=== PATIENT | female | born 1945 | race Caucasian/White ===

== ENCOUNTER 2017-08-19 01:43 | Emergency (ER) | payer MEDICARE, OTHER ==
[2017-08-19] MEDS ORDERED: ALBUTEROL NEB 2.5 MG/3 ML INH STA (01:53)
[2017-08-19 02:11] LABS: BASOPHILS # (AUTO) 0.1 10^3/uL (0.0-0.1); BASOPHILS % (AUTO) 0.5 %; EOSINOPHILS % (AUTO) 0.2 %; HGB - HEMOGLOBIN 12.9 g/dL (12.0-16.0); LYMPHOCYTES # (AUTO) 2.1 10^3/uL (1.5-3.5); LYMPHOCYTES % (AUTO) 13.6 %; MEAN CORPUSCULAR HEMOGLOBIN 27.6 pg (27.0-31.0); MEAN CORPUSCULAR HGB CONC 32.3 g/dL (32.0-36.0); MEAN CORPUSCULAR VOLUME 85.4 fL (81.0-99.0); MEAN PLATELET VOLUME 8.1 fL (7.9-10.8); MONOCYTES # (AUTO) 0.9 10^3/uL (0.0-1.0); MONOCYTES % (AUTO) 5.8 %; NEUTROPHILS # (AUTO) 12.6 10^3/uL (1.5-6.6); NEUTROPHILS % (AUTO) 79.9 %; PLT - PLATELET COUNT 258 10^3/uL (130-450); RED BLOOD COUNT 4.66 10^6/uL (4.20-5.40); RED CELL DISTRIBUTION WIDTH 13.1 % (12.0-15.0); WHITE BLOOD COUNT 15.8 x10^3/uL (4.8-10.8)
[2017-08-19 02:27] LABS: ALBUMIN 4.2 g/dL (3.2-5.5); ALBUMIN/GLOBULIN RATIO 1.4 (1.0-2.2); BILIRUBIN,TOTAL 0.7 mg/dL (0.2-1.0); CALCIUM 9.5 mg/dL (8.5-10.3); CREATININE 0.7 mg/dL (0.4-1.0); TOTAL PROTEIN 7.2 g/dL (6.7-8.2)
--- NOTE | 2017-08-19 03:25 | XRAY Report ---
EXAM: CHEST RADIOGRAPHY EXAM DATE: 08/19/2017 03:03 AM. CLINICAL HISTORY: Epigastric pain. COMPARISON: 07/21/2013. TECHNIQUE: 2 views. FINDINGS: Lungs/Pleura: No focal opacities evident. No pleural effusion. No pneumothorax. Normal volumes. Mediastinum: Heart and mediastinal contours are unremarkable. Other: None. IMPRESSION: Stable chest without acute process seen. [facility] Referring Provider Line: [phone] SITE ID: [id number]
[2017-08-19] MEDS ORDERED: LIDOCAINE VISCOUS 2% 15 ML UDC MM STA (03:53)
[2017-08-19] MEDS ORDERED: MAG HYDROX/AL HYDROX/SIMETH 30 ML UDC PO STA (03:53)
[2017-08-19] MEDS ORDERED: FAMOTIDINE 20 MG TABLET PO STA (03:53)
--- NOTE | 2017-08-19 04:11 | ED Physician Documentation ---
PD HPI DYSPNEA - Stated complaint Stated Complaint: DIFF BREATHING - Chief complaint Chief Complaint: Abd Pain - History obtained from History obtained from: Patient, Family, EMS - History of Present Illness Timing - onset: Chronic Timing - details: Gradual onset, Still present Inciting event(s): URI Improved by: O2, Inhaler/neb Associated symptoms: Cough, Wheezing. No: Fever Similar symptoms before: Work up / diagnostics, Treatment Recently seen: Clinic - Additional information Additional information: Patient is a 72 year old female with a history of asthma secondary to gerd who is presenting to the emergency department for shortness of breath. Patient states that she is being treated with a steroid burst for bronchitis. Patient states that about 7pm she felt like she could not get her breath, and could not even breath in her inhaler. Patient was eventually able to give herself albuterol and the feeling improved. Patient states that she had some epigastric pain with it so she decided she should come to the emergency department. Review of Systems Ten Systems: 10 systems reviewed and negative Respiratory: reports: Dyspnea, Cough, Wheezing GI: reports: Abdominal Pain. denies: Nausea, Vomiting, Constipation, Diarrhea PD PAST MEDICAL HISTORY - Past Medical History Past Medical History: Yes Cardiovascular: Hypertension Respiratory: Asthma GI: GERD Psych: Anxiety - Past Surgical History Past Surgical History: No - Present Medications Home Medications: Ambulatory Orders Medication Instructions Recorded Confirmed Lisinopril 30 mg PO DAILY 07/21/13 07/21/13 Omeprazole [PriLOSEC] 40 mg PO DAILY 07/21/13 07/21/13 Albuterol [Ventolin Hfa] 2 puffs INH Q4H PRN 07/23/13 07/23/13 Benzonatate [Tessalon Perle] 100 mg PO TID #30 capsule 07/23/13 Estrogen,Con/M-Progest Acet 1 each PO DAILY 07/23/13 07/23/13 [Prempro 0.3 mg-1.5 mg Tablet] Fluticasone 44 Mcg [Flovent] 1 puffs INH BID 07/23/13 07/23/13 Levalbuterol HCl [Xopenex] 1.25 mg IH Q8HR PRN #30 vial 07/23/13 Prednisone 10 mg PO DAILY 07/23/13 07/23/13 guaiFENesin [Mucinex] 600 mg PO BID #30 tablet 07/23/13 - Allergies Allergies/Adverse Reactions: Allergies Allergy/AdvReac Type Severity Reaction Status Date / Time novacaine AdvReac Intermediate passed out Uncoded 08/19/17 01:56 - Social History Does the pt smoke?: No Smoking Status: Never smoker Does the pt drink ETOH?: No Does the pt have substance abuse?: No - Immunizations Immunizations are current?: Yes - POLST Patient has POLST: No PD ED PE NORMAL - Vitals Vital signs reviewed: Yes - General General: Alert and oriented X 3, No acute distress - HEENT HEENT: Atraumatic - Neck Neck: No JVD - Cardiac Cardiac: RRR - Respiratory Respiratory: No respiratory distress - Abdomen Abdomen: Non distended - Extremities Extremities: No edema - Neuro Neuro: Alert and oriented X 3, No motor deficit, Normal speech Eye Opening: Spontaneous PD ED PE EXPANDED - Abdomen Abdomen: Tender to palpation, Epigastric Results - Vitals Vitals: Vital Signs - 24 hr 08/19/17 08/19/17 08/19/17 01:45 02:02 02:30 Temperature 36.9 C Heart Rate 101 H 86 92 Respiratory 20 17 18 Rate Blood Pressure 185/96 H 137/63 H O2 Saturation 99 99 08/19/17 08/19/17 03:35 04:00 Temperature Heart Rate 93 91 Respiratory 16 16 Rate Blood Pressure 129/65 O2 Saturation 97 97 Oxygen O2 Source Room air - EKG (time done) 0203 Rate: Rate (enter#) (69) Rhythm: NSR [place]: LAD QRS: LVH Ischemia: T wave inversion Compare to prior EKG: Unchanged from prior EKG 0347 Rate: Rate (enter#) (88) Rhythm: NSR QRS: LVH Compare to prior EKG: Unchanged from prior EKG - Labs Labs: Laboratory Tests 08/19/17 08/19/17 08/19/17 02:08 02:08 02:08 WBC 15.8 H RBC 4.66 Hgb 12.9 Hct 39.8 MCV 85.4 MCH 27.6 MCHC 32.3 RDW 13.1 Plt Count 258 MPV 8.1 Neut # (Auto) 12.6 H Lymph # (Auto) 2.1 [place] # (Auto) 0.9 Eos # (Auto) 0.0 Baso # (Auto) 0.1 Absolute Nucleated RBC 0.00 Nucleated RBC % 0.0 Sodium 139 Potassium 3.2 L Chloride 104 Carbon Dioxide 24 Anion Gap 11.0 BUN 26 H Creatinine 0.7 Estimated GFR (MDRD) 82 L Glucose 119 H Calcium 9.5 Total Bilirubin 0.7 AST 46 H ALT 47 Alkaline Phosphatase 82 Troponin I 0.11 B-Natriuretic Peptide Total Protein 7.2 Albumin 4.2 Globulin 3.0 Albumin/Globulin Ratio 1.4 Lipase 31 08/19/17 08/19/17 02:08 03:40 WBC RBC Hgb Hct MCV MCH MCHC RDW Plt Count MPV Neut # (Auto) Lymph # (Auto) [place] # (Auto) Eos # (Auto) Baso # (Auto) Absolute Nucleated RBC Nucleated RBC % Sodium Potassium Chloride Carbon Dioxide Anion Gap BUN Creatinine Estimated GFR (MDRD) Glucose Calcium Total Bilirubin AST ALT Alkaline Phosphatase Troponin I 0.10 B-Natriuretic Peptide 83 Total Protein Albumin Globulin Albumin/Globulin Ratio Lipase - Rads (name of study) chest x-ray Radiology: Final report received (no acute cardiopulmonary disease) PD MEDICAL DECISION MAKING - ED course Complexity details: reviewed old records, reviewed results, re-evaluated patient , considered differential, d/w patient, d/w family ED course: Patient was seen and examined at bedside. Patient was well appearing and stated that her breathing had improved. ekg was performed and was unchanged from patient's previous ekg. labs were drawn, patient was treated with a duoneb. chest x-ray was ordered and was within normal limits. Patient's original diagnostics were within normal limits. patient was treated with pepcid , maalox and viscous lidocaine with moderate relief. patient's repeat ekg and troponin remained negative. patient required no further inpatient work up at this time and was stable for discharge with outpatient follow up. Departure - Departure Disposition: 01 Home, Self Care Clinical Impression: Bronchitis Condition: Good Instructions: ED Bronchitis Asthmatic Follow-Up: Vivian Lowry MD [Primary Care Provider] - Comments: Your diagnostics today were within normal limits. there were no major abnormalities. That being said you should still follow up with your doctor for further evaluation and care. i would recommend a stress test and an echocardiogram. You may return to the emergency department at any time for new , worsening or uncontrollable symptoms. Discharge Date/Time: 08/19/17 04:17
[2017-08-19 04:17] VITALS: BP 129/65
== END 2017-08-19 04:17 | disposition home or self-care (01) ==
LOC: ED 01:43
DX: J40 Bronchitis, not specified as acute or chronic (principal); I10 Essential (primary) hypertension
CPT/HCPCS: 36415; 71046; 80053; 83690; 83880; 84484; 85025; 93005; 94640; 99284; A9270

== ENCOUNTER 2021-05-07 06:08 | Emergency (ER) | payer MEDICARE, OTHER ==
[2021-05-07] MEDS ORDERED: HYDROmorphone 1 MG/ML CARPUJECT IVP STA (06:35)
[2021-05-07] MEDS ORDERED: ONDANSETRON 4 MG/2 ML VIAL IVP STA (06:35)
[2021-05-07 06:48] LABS: BASOPHILS # (AUTO) 0.1 10^3/uL (0.0-0.1); BASOPHILS % (AUTO) 0.8 %; EOSINOPHILS # (AUTO) 0.1 10^3/uL (0.0-0.7); EOSINOPHILS % (AUTO) 1.1 %; HCT - HEMATOCRIT 41.7 % (37.0-47.0); HGB - HEMOGLOBIN 13.5 g/dL (12.0-16.0); LYMPHOCYTES # (AUTO) 1.1 10^3/uL (1.5-3.5); LYMPHOCYTES % (AUTO) 11.9 %; MEAN CORPUSCULAR HGB CONC 32.4 g/dL (32.0-36.0); MEAN CORPUSCULAR VOLUME 89.5 fL (81.0-99.0); MEAN PLATELET VOLUME 9.7 fL (7.9-10.8); MONOCYTES # (AUTO) 0.4 10^3/uL (0.0-1.0); MONOCYTES % (AUTO) 4.3 %; NEUTROPHILS # (AUTO) 7.3 10^3/uL (1.5-6.6); NEUTROPHILS % (AUTO) 81.7 %; PLT - PLATELET COUNT 235 10^3/uL (130-450); RED BLOOD COUNT 4.66 10^6/uL (4.20-5.40); RED CELL DISTRIBUTION WIDTH 12.3 % (12.0-15.0); WHITE BLOOD COUNT 8.9 x10^3/uL (4.8-10.8)
[2021-05-07 06:52] LABS: BILIRUBIN,URINE NEGATIVE (NEGATIVE); GLUCOSE, URINE (UA) NEGATIVE (NEGATIVE); KETONES,URINE (UA) TRACE mg/dL (NEGATIVE); LEUKOCYTE ESTERASE, URINE NEGATIVE (NEGATIVE); NITRITE,URINE NEGATIVE (NEGATIVE); OCCULT BLOOD,URINE SMALL (NEGATIVE); PROTEIN,URINE NEGATIVE (NEGATIVE); UROBILINOGEN,URINE 0.2 (NORMAL) E.U./dL (NORMAL)
[2021-05-07 06:57] LABS: CLARITY,URINE CLEAR (CLEAR)
[2021-05-07 07:01] LABS: ALBUMIN 4.6 g/dL (3.2-5.5); ALBUMIN/GLOBULIN RATIO 1.5 (1.0-2.2); BILIRUBIN,TOTAL 0.5 mg/dL (0.2-1.0); CALCIUM 9.6 mg/dL (8.5-10.3); POTASSIUM 3.6 mmol/L (3.5-5.0); TOTAL PROTEIN 7.7 g/dL (6.7-8.2)
[2021-05-07 07:05] LABS: BACTERIA,URINE Rare /HPF (None Seen); RBC,URINE 0-5 /HPF (0-5); SQUAMOUS EPITHELIAL CELL,UR NONE SEEN (<= Few); WBC,URINE 0-3 /HPF (0-5)
--- NOTE | 2021-05-07 07:26 | ED Physician Documentation ---
PD HPI ABD PAIN - Stated complaint Stated Complaint: VOMITING, BACK PAIN - Chief complaint Chief Complaint: Back Pain - History obtained from History obtained from: Patient - Additional information Additional information: R flank pain started suddenly at 0300. 8/10 constant and associated with low abd pressure and N/V. Feels urinary urgency with this. Has Hx HTN, GERD, asthma. Review of Systems Ten Systems: 10 systems reviewed and negative Constitutional: reports: Chills. denies: Fever Nose: denies: Rhinorrhea / runny nose, Congestion Throat: denies: Sore throat Cardiac: denies: Chest pain / pressure, Palpitations Respiratory: denies: Dyspnea, Cough PD PAST MEDICAL HISTORY - Past Medical History Past Medical History: Yes Cardiovascular: Hypertension Respiratory: Asthma GI: GERD Psych: Anxiety - Past Surgical History Past Surgical History: No - Present Medications Home Medications: Ambulatory Orders Medication Instructions Recorded Confirmed Omeprazole [PriLOSEC] 40 mg PO DAILY 07/21/13 07/21/13 lisinopriL [Lisinopril] 30 mg PO DAILY 07/21/13 07/21/13 Albuterol [Ventolin Hfa] 2 puffs INH Q4H PRN 07/23/13 07/23/13 Benzonatate [Tessalon Perle] 100 mg PO TID #30 capsule 07/23/13 Estrogen,Con/M-Progest Acet 1 each PO DAILY 07/23/13 07/23/13 [Prempro 0.3 mg-1.5 mg Tablet] Fluticasone 44 Mcg [Flovent] 1 puffs INH BID 07/23/13 07/23/13 Levalbuterol HCl [Xopenex] 1.25 mg IH Q8HR PRN #30 vial 07/23/13 Prednisone 10 mg PO DAILY 07/23/13 07/23/13 guaiFENesin [Mucinex] 600 mg PO BID #30 tablet 07/23/13 HYDROcod/ACETAM 5/325 [[place] 5/325] 1 - 2 tab PO Q6H PRN #15 tablet 05/07/21 Naproxen 250 mg PO BID PRN #15 tablet 05/07/21 Ondansetron Odt [Zofran] 4 mg TL Q6H PRN #10 tablet 05/07/21 Tamsulosin [Flomax] 0.4 mg PO DAILY #14 cap 05/07/21 - Allergies Allergies/Adverse Reactions: Allergies Allergy/AdvReac Type Severity Reaction Status Date / Time novacaine AdvReac Intermediate passed out Uncoded 05/07/21 06:24 - Social History Does the pt smoke?: No Smoking Status: Never smoker Does the pt drink ETOH?: No Does the pt have substance abuse?: No - Immunizations Immunizations are current?: Yes - POLST Patient has POLST: No PD ED PE NORMAL - Vitals Vital signs reviewed: Yes - General General: Alert and oriented X 3, No acute distress - HEENT HEENT: PERRL, EOMI - Neck Neck: Supple, no meningeal sign, No bony TTP - Cardiac Cardiac: RRR, No murmur - Respiratory Respiratory: No respiratory distress, Clear bilaterally - Abdomen Abdomen: Normal bowel sounds, Soft, Non tender - Back Back: No CVA TTP, No spinal TTP - Derm Derm: Normal color, Warm and dry - Extremities Extremities: No edema, No calf tenderness / cord - Neuro Neuro: Alert and oriented X 3, Normal speech Results - Vitals Vitals: Vital Signs - 24 hr 05/07/21 05/07/21 05/07/21 06:22 06:51 06:54 Temperature 35.7 C L Heart Rate 84 72 60 Respiratory 19 15 16 Rate Blood Pressure 178/90 H O2 Saturation 100 97 99 05/07/21 05/07/21 05/07/21 07:03 07:11 09:19 Temperature 36.3 C L Heart Rate 69 66 77 Respiratory 15 16 18 Rate Blood Pressure 143/75 H 162/82 H O2 Saturation 100 100 100 Oxygen O2 Source Nasal cannula - Labs Labs: Laboratory Tests 05/07/21 05/07/21 05/07/21 06:37 06:45 06:45 WBC 8.9 RBC 4.66 Hgb 13.5 Hct 41.7 MCV 89.5 MCH 29.0 MCHC 32.4 RDW 12.3 Plt Count 235 MPV 9.7 Neut # (Auto) 7.3 H Lymph # (Auto) 1.1 [place] # (Auto) 0.4 Eos # (Auto) 0.1 Baso # (Auto) 0.1 Absolute Nucleated RBC 0.00 Nucleated RBC % 0.0 Sodium 139 Potassium 3.6 Chloride 103 Carbon Dioxide 25 Anion Gap 11.0 BUN 18 Creatinine 1.0 Estimated GFR (MDRD) 54 L Glucose 175 H Calcium 9.6 Total Bilirubin 0.5 AST 24 ALT 25 Alkaline Phosphatase 77 Total Protein 7.7 Albumin 4.6 Globulin 3.1 Albumin/Globulin Ratio 1.5 Lipase 35 Urine Color YELLOW Urine Clarity CLEAR Urine pH 6.0 Ur Specific [place] >=1.030 H Urine Protein NEGATIVE Urine Glucose (UA) NEGATIVE Urine Ketones TRACE Urine Occult Blood SMALL H Urine Nitrite NEGATIVE Urine Bilirubin NEGATIVE Urine Urobilinogen 0.2 (NORMAL) Ur Leukocyte Esterase NEGATIVE Urine RBC 0-5 Urine WBC 0-3 Ur Squamous Epith Cells NONE SEEN Urine Bacteria Rare Ur Microscopic Review INDICATED Urine Culture Comments NOT INDICATED - Rads (name of study) CT abdomen pelvis showing 3 mm right UVJ stone and incidental diverticulosis Radiology: EMP read contemporaneously PD MEDICAL DECISION MAKING - ED course Complexity details: considered differential (renal colic, pyelo, renal infarct, AAA, vascular issue) ED course: 75-year-old woman with likely renal colic. Differential diagnosis as above. CT proving renal colic and feeling much better after meds here. Departure - Departure Disposition: Home, Self Care Clinical Impression: Renal colic on right side Condition: Good Record reviewed to determine appropriate education?: Yes Instructions: ED Stone Renal W Colic Prescriptions: Tamsulosin [Flomax] 0.4 mg PO DAILY #14 cap Naproxen 250 mg PO BID PRN #15 tablet PRN Reason: Pain HYDROcod/ACETAM 5/325 [[place] 5/325] 1 - 2 tab PO Q6H PRN #15 tablet PRN Reason: Pain Ondansetron Odt [Zofran] 4 mg TL Q6H PRN #10 tablet PRN Reason: Nausea / Vomiting Comments: I sent your prescriptions electronically to [facility] in [place]. As discussed you have a 3 mm kidney stone almost in the bladder on the right side. Very likely this will pass without any other specific therapy. I am prescribing you 2 medications for pain, one for nausea, and one for a medication that may help the stone pass faster. Strain your urine with the urine strainers provided, if you get any material present to your physician for potential evaluation. Return for new or worse worsening symptoms. Follow-up with your physician within the week for recheck. Hydrocodone is a narcotic I am prescribing a short course of narcotic pain medication for you. These are potentially dangerous and addictive medications that should be used carefully. These medications may constipate you. Take an [id number] stool softener (docusate) twice daily with plenty of water while taking these medications. If you go 24 hours without a bowel movement, take [id number] miralax, per package instructions. Do not drink or drive while taking these medications. If you received narcotic or sedating medications while in the emergency department, do not drive for 24 hours. Store this medication in a safe, secure place and out of reach of children. It is a violation of federal law to give or sell this medication to another person or to use in a manner other than prescribed. The ED will not refill narcotic prescriptions, including prescriptions lost or stolen. To dispose of unwanted medications: 1. [facility] at [address] in [place] has a medication drop box. They accept prescription medications (in pil l form) Wednesday through Wednesday 9:00 a.m. to 5:00 p.m. 2. The [facility] [employer] accepts prescription medications (in pill form only) for disposal year round. Call for more information. 3. Contact the [facility] for the next [facility] sponsored prescription drug collection event. , [phone], or [phone]; Note that many narcotic pain relievers also contain Tylenol/acetaminophen. Please ensure that your total dose of acetaminophen from all sources does not exceed 3 g (3000 mg) per day. Discharge Date/Time: 05/07/21 09:45
[2021-05-07] MEDS ORDERED: IOVERSOL 320 100 ML VIAL IVP ONE ×2 (07:41→08:19)
--- NOTE | 2021-05-07 08:28 | CT Report ---
PROCEDURE: Abdomen/Pelvis W INDICATIONS: R flank pain, IV only CONTRAST: IV CONTRAST: Optiray 320 ml: 100 PO CONTRAST: *NO PO CONTRAST TECHNIQUE: After the administration of intravenous contrast, 5 mm thick sections acquired from the diaphragms to the symphysis. 5 mm thick coronal and sagittal reformats were acquired. For radiation dose reducti on, the following was used: automated exposure control, adjustment of mA and/or kV according to werner ent size. COMPARISON: None. FINDINGS: Image quality: Excellent. ABDOMEN: Lung bases: Mild dependent atelectasis. No pleural effusion. Moderate-sized hiatal hernia. Heart siz e is normal. Solid organs: Liver and spleen are normal in size and enhancement. Gallbladder is unremarkable. Bi liary system is non dilated. Pancreas enhances normally. No adrenal nodules. Kidneys demonstrate n ormal size and enhancement. There is an obstructing calculus at the right UVJ measuring 0.3 cm, (3/35 ). There is mild right pelvocaliectasis. Scant perinephric stranding. Peritoneum and bowel: Bowel loops demonstrate normal wall thickness and caliber. Diverticulosis. Nor mal appendix. No free fluid or air. Nodes and vessels: No retroperitoneal or mesenteric adenopathy by size criteria. Aorta and inferior vena cava are normal in size. Miscellaneous: No ventral hernias. PELVIS: Genitourinary: Decompressed. Miscellaneous: No inguinal hernias or adenopathy. Bones: No suspicious bony lesions. Mild DDD. No vertebral body compression fractures. IMPRESSION: 1. Obstructing calculus at the right UVJ measuring 0.3 cm. Mild right pelvocaliectasis. 2. Diverticulosis. No diverticulitis. Normal appendix. Reviewed by: Johnathon Hameed MD on 05/07/2021 8:26 AM [facility] Approved by: Johnathon Hameed MD on 05/07/2021 8:26 AM PST Station ID: [id number]
[2021-05-07] MEDS ORDERED: KETOROLAC 15 MG/ML VIAL IVP STA (08:47)
[2021-05-07 09:20] VITALS: BP 162/82
== END 2021-05-07 09:45 | disposition home or self-care (01) ==
LOC: ED 06:08
DX: N23 Unspecified renal colic (principal); I10 Essential (primary) hypertension
CPT/HCPCS: 36415; 74177; 80053; 81001; 83690; 85025; 96374; 96375; 99283; J1170; Q9967; 81003; 87086

== ENCOUNTER → 2022-02-11 | Outpatient (CLI) | payer MEDICARE | END | disposition short-term general hospital (02) | LOC: EMS 14:02 | DX: R41.0 Disorientation, unspecified (principal); U07.1 COVID-19 | CPT/HCPCS: A0425; A0429 ==